=== PATIENT | male | born 1940 | race Caucasian/White ===

== ENCOUNTER 2018-01-07 15:38 | Inpatient (IN) ==
--- NOTE | 2018-01-07 15:58 | Emergency Department Note ---
Disposition Clinical Impression: Community acquired pneumonia, Sepsis, Lactic acidosis Disposition: Admitted As Inpatient Condition: Good General Adult HPI - General Chief complaint: ED Shortness of Breath/Dyspnea Stated complaint: "cough,sob" Time Seen by Provider: 01/07/18 15:54 - History of Present Illness Pain Scale: 10 - Related Data Home Medications Medication Instructions Recorded Confirmed Clopidogrel [Plavix] 75 mg PO DAILY 01/07/18 01/07/18 Glimepiride [Amaryl] 4 mg PO DAILY 01/07/18 01/07/18 Losartan Potassium [Cozaar] 50 mg PO DAILY 01/07/18 01/07/18 Metformin HCl [Metformin HCl ER] 1,000 mg PO BID 01/07/18 01/07/18 Metoprolol Succinate [Toprol Xl] 50 mg PO DAILY 01/07/18 01/07/18 Simvastatin [Zocor] 40 mg PO HS 01/07/18 01/07/18 Allergies Allergy/AdvReac Type Severity Reaction Status Date / Time No Known Allergies Allergy Verified 01/07/18 17:32 Past Medical History - Past Medical History Medical history: Reports: diabetes, hyperlipidemia, hypertension, myocardial infarction Surgical history: Reports: vascular surgery Psychiatric history: Reports: no psych history - Social History Smoking Status: Former smoker Smokeless Tobacco Status: No Alcohol use: Reports: none Drug use: Reports: none Course Vital Signs Temperature 101.5 F H 01/07/18 15:48 Pulse Rate 90 01/07/18 15:48 Respiratory Rate 18 01/07/18 15:48 Blood Pressure 158/76 01/07/18 15:48 O2 Sat by Pulse Oximetry 93 01/07/18 15:48 Temperature 97.7 F 01/07/18 19:13 Pulse Rate 73 01/07/18 19:13 Respiratory Rate 16 01/07/18 19:13 Blood Pressure 131/72 01/07/18 19:13 O2 Sat by Pulse Oximetry 96 01/07/18 19:13 Oxygen Delivery Oxygen Delivery Nasal Cannula Medical Decision Making - Lab Data Result diagrams: 01/07/18 16:00 01/07/18 16:00 Lab Results 01/07/18 01/07/18 01/07/18 Range/Units 16:00 16:00 16:25 WBC 7.3 (4.3-11.1) K/mcL RBC 4.17 L (4.19-5.50) M/mcL Hgb 13.5 (12.9-16.9) g/dL Hct 38.5 (37.5-50.1) % MCV 92.3 (83.0-100.0) fL MCH 32.4 (28.0-33.3) pg MCHC 35.1 (31.6-35.5) g/dL RDW 13.2 (11.5-14.5) % Plt Count 192 (140-400) K/mcL MPV 9.9 (9.4-12.4) fL Immature Gran % 1.1 (0-4) % Seg Neutrophils % 75.0 % Lymphocytes % 12.3 % Monocytes % 9.7 % Eosinophils % 1.4 % Basophils % 0.5 % Neutrophils # 5.5 (1.6-8.9) K/mcL Lymphocytes # 0.9 (0.6-4.6) K/mcL Monocytes # 0.7 (0.0-1.3) K/mcL Eosinophils # 0.1 (0.0-0.6) K/mcL Basophils # 0.0 (0.0-0.2) K/mcL Sodium 138 (136-145) mEq/L Potassium 4.0 (3.5-5.1) mEq/L Chloride 104 (98-107) mEq/L Carbon Dioxide 26 (23-29) mEq/L BUN 15 (8-23) mg/dL Creatinine 1.11 (0.70-1.30) mg/dL Est GFR ( Amer) > 60 (> 60) Est GFR (Non-Af Amer) > 60 (> 60) BUN/Creatinine Ratio 14 (6-26) Glucose 223 H (70-105) mg/dL Calculated Osmolality 294 (280-300) Lactic Acid 2.5 H (0.5-2.2) mmol/L Calcium 9.0 (8.6-10.3) mg/dL Total Bilirubin 0.7 (0.3-1.0) mg/dL Direct Bilirubin 0.2 (0.0-0.2) mg/dL Indirect Bilirubin 0.5 (0.0-1.2) mg/dL AST 27 (13-39) Units/L ALT 28 (7-52) Units/L Alkaline Phosphatase 59 (34-104) Units/L Troponin I < 0.03 (< 0.04) ng/mL Serum Total Protein 6.9 (6.4-8.9) g/dL Albumin 4.5 (3.5-5.7) g/dL Globulin 2.4 (2.4-3.5) g/dL Albumin/Globulin Ratio 1.9 (1.1-2.2) Urine Color (Yellow) Urine Clarity (Clear) Urine pH (5.0-8.0) pH Units Ur Specific [place] (1.010-1.025) Urine Protein (Neg-Trace) mg/dL Urine Glucose (UA) (Normal) mg/dL Urine Ketones (Negative) mg/dL Urine Blood (Negative) Urine Nitrite (Negative) Urine Bilirubin (Negative) Urine Urobilinogen (Normal) mg/dL Ur Leukocyte Esterase (Negative) Urine Microscopic RBC (0-3) per hpf Urine Microscopic WBC (0-3) per hpf Ur Squamous Epith Cells (None-Few) per lpf Urine Bacteria (None-Few) per hpf Hyaline Casts (None-Few) per lpf Ur Culture Indicated? (NO) 01/07/18 Range/Units 16:55 WBC (4.3-11.1) K/mcL RBC (4.19-5.50) M/mcL Hgb (12.9-16.9) g/dL Hct (37.5-50.1) % MCV (83.0-100.0) fL MCH (28.0-33.3) pg MCHC (31.6-35.5) g/dL RDW (11.5-14.5) % Plt Count (140-400) K/mcL MPV (9.4-12.4) fL Immature Gran % (0-4) % Seg Neutrophils % % Lymphocytes % % Monocytes % % Eosinophils % % Basophils % % Neutrophils # (1.6-8.9) K/mcL Lymphocytes # (0.6-4.6) K/mcL Monocytes # (0.0-1.3) K/mcL Eosinophils # (0.0-0.6) K/mcL Basophils # (0.0-0.2) K/mcL Sodium (136-145) mEq/L Potassium (3.5-5.1) mEq/L Chloride (98-107) mEq/L Carbon Dioxide (23-29) mEq/L BUN (8-23) mg/dL Creatinine (0.70-1.30) mg/dL Est GFR ( Amer) (> 60) Est GFR (Non-Af Amer) (> 60) BUN/Creatinine Ratio (6-26) Glucose (70-105) mg/dL Calculated Osmolality (280-300) Lactic Acid (0.5-2.2) mmol/L Calcium (8.6-10.3) mg/dL Total Bilirubin (0.3-1.0) mg/dL Direct Bilirubin (0.0-0.2) mg/dL Indirect Bilirubin (0.0-1.2) mg/dL AST (13-39) Units/L ALT (7-52) Units/L Alkaline Phosphatase (34-104) Units/L Troponin I (< 0.04) ng/mL Serum Total Protein (6.4-8.9) g/dL Albumin (3.5-5.7) g/dL Globulin (2.4-3.5) g/dL Albumin/Globulin Ratio (1.1-2.2) Urine Color Yellow (Yellow) Urine Clarity Clear (Clear) Urine pH 5.5 (5.0-8.0) pH Units Ur Specific [place] 1.025 (1.010-1.025) Urine Protein 30 H (Neg-Trace) mg/dL Urine Glucose (UA) 100 H (Normal) mg/dL Urine Ketones Negative (Negative) mg/dL Urine Blood Negative (Negative) Urine Nitrite Negative (Negative) Urine Bilirubin Negative (Negative) Urine Urobilinogen Normal (Normal) mg/dL Ur Leukocyte Esterase Negative (Negative) Urine Microscopic RBC 0-3 (0-3) per hpf Urine Microscopic WBC 0-3 (0-3) per hpf Ur Squamous Epith Cells Moderate H (None-Few) per lpf Urine Bacteria None Seen (None-Few) per hpf Hyaline Casts None Seen (None-Few) per lpf Ur Culture Indicated? NO (NO) Attestation Statement - Attestation Attestation: I examined this patient and my medical decision-making was reviewed with the Resident Physician. I agree with the documented findings, disposition and treatment plan as described except to the extent set forth below. [id number] time provided Patient recently returned from the [facility] and [place]. He complains of a productive cough and dyspnea. He is also febrile. Patient has no asymmetric leg swelling. Appears mildly dyspneic on exam. He is not conversationally dyspneic. Patient evaluated in conjunction with the resident physician Dr. Booker
--- NOTE | 2018-01-07 16:20 | Emergency Department Note ---
Disposition Clinical Impression: Lactic acidosis Community acquired pneumonia Qualifiers: Laterality: left Lung location: unspecified part of lung Qualified Code(s): J18.9 - Pneumonia, unspecified organism Sepsis Qualifiers: Sepsis type: sepsis due to unspecified organism Qualified Code(s): A41.9 - Sepsis, unspecified organism Disposition: Admitted As Inpatient Condition: Good Referrals: Sue Bravo [employer] [Primary Care Provider] - Forms: ED Satisfaction Letter Time of Disposition: 17:48 SOB HPI - General Chief Complaint: ED Shortness of Breath/Dyspnea Stated Complaint: "cough,sob" Time Seen by Provider: 01/07/18 15:54 Source: patient, family () Limitations: no limitations Nursing Notes Reviewed: Yes Vital Signs Reviewed: Yes - History of Present Illness 77-year-old male presents emergency department for shortness of breath and cough. Patient recently came back from a week travel from [facility] returning on Saturday. Since then he has progressively developed a cough with shortness of breath. No fevers at home but fever present here on arrival. States is been progressively worsening especially with exertion. Denies any chest pain. Reports over the past year use had issues with breathing. Denies any abdominal pain, nausea, vomiting or diarrhea. Has noticed some runny nose. Denies any leg swelling. 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 Denies any known lung disease. Was a former smoker. Denies known malignancy. He has an albuterol which she did use yesterday that she helped slightly. Denies history of blood clots. Patient reports a similar history about a year ago. Pt Subjective Complaint: shortness of breath, cough - Related Data Home Medications Medication Instructions Recorded Confirmed Clopidogrel [Plavix] 75 mg PO DAILY 01/07/18 01/07/18 Glimepiride [Amaryl] 4 mg PO DAILY 01/07/18 01/07/18 Losartan Potassium [Cozaar] 50 mg PO DAILY 01/07/18 01/07/18 Metformin HCl [Metformin HCl ER] 1,000 mg PO BID 01/07/18 01/07/18 Metoprolol Succinate [Toprol Xl] 50 mg PO DAILY 01/07/18 01/07/18 Simvastatin [Zocor] 40 mg PO HS 01/07/18 01/07/18 Allergies Allergy/AdvReac Type Severity Reaction Status Date / Time No Known Allergies Allergy Verified 01/07/18 17:32 All systems ED: reviewed and negative except as stated. Review of Systems: As Per HPI Constitutional: Reports: fever. Denies: chills, weakness ENT ED: Reports: congestion Cardiovascular: Denies: chest pain Respiratory: Reports: cough, dyspnea Gastrointestinal: Denies: abdominal pain, nausea, vomiting, diarrhea Musculoskeletal: Denies: back pain, neck pain, arthralgia, myalgia Neurological: Denies: headache Past Medical History - Past Medical History Attestation: Yes The following information was validated with the patient. Source: patient Medical history: Reports: diabetes, hyperlipidemia, hypertension, myocardial infarction Surgical history: Reports: vascular surgery Psychiatric history: Reports: no psych history - Social History Smoking Status: Former smoker Smokeless Tobacco Status: No Alcohol use: Reports: none Drug use: Reports: none Physical Exam - General Limitations: no limitations General appearance: alert, in no apparent distress - Head Head exam: atraumatic, normocephalic, normal inspection - Eye Eye exam: Present: normal appearance, PERRL, EOMI - ENT ENT exam: normal exam, normal oropharynx, mucous membranes moist - Neck Neck exam: Present: normal inspection, full ROM, trachea midline - Chest Chest inspection: Present: normal inspection, symmetric chest wall rise, other ( midline sternal scar consistent with CABG) - Respiratory Respiratory exam: Present: normal lung sounds bilaterally. Absent: respiratory distress - Expanded Respiratory Exam Location: rales: Lower - Cardiovascular Cardiovascular exam: Present: regular rate, normal rhythm, normal heart sounds - Abdominal Exam Abdominal exam: Present: soft, Non-Tender, normal bowel sounds. Absent: tenderness, distention, guarding, rebound, rigidity - Extremities Exam Extremities exam: Present: normal inspection, full ROM, normal capillary refill. Absent: tenderness, pedal edema, calf tenderness - Neurological Exam Neurological exam: Present: alert, oriented X3, CN II-XII intact - Expanded Neurological Exam Patient oriented to: Present: person, place, time Cranial nerves: EOM function (II, III, IV, ): Normal, facial sensation (V): Normal, facial palsy (VII): Normal, gag reflex (IX): Normal, spinal accessory function (XI): Normal, tongue deviation (XII): Normal Motor strength - LUE: 5/5 Motor strength - RUE: 5/5 Motor strength - LLE: 5/5 Motor strength - RLE: 5/5 - Psychiatric Psychiatric exam: Present: normal affect, normal mood - Skin Skin exam: Present: warm, dry, intact, normal color. Absent: rash, cyanosis, diaphoresis Course Course Narrative: Patient presents with cough fever or shortness of breath. Progressively worse over the past 48 hours. He was slightly hypoxic here requiring nasal cannula. Given his recent symptoms will evaluate for pneumonia. Consideration for pulmonary embolism less likely given the cough and fever. He has a Wells score of 0. Sepsis workup initiated including chest x-ray basic labs in blood cultures. Final disposition pending workup. - Reevaluation(s) Reevaluation #1: Review of his labs no leukocytosis. His glucose is slightly elevated 200. History of diabetes. His lactate is elevated 2.5. He is not hypotensive requiring aggressive fluid resuscitation but will give him some normal saline given the elevated lactate. Will repeat that. Chest x-ray shows findings concerning for pneumonia and the left low. Given his fever cough and dyspnea and currently requiring some oxygen supplementation patient will be admitted to the hospital for further care management. He is quite active in will treat him azithromycin and ceftriaxone. He is in agreement with this plan for admission. Impression is community acquired pneumonia, elevated lactate, sepsis. Time: 17:21 - Consultations Consultation #1: Spoke with on-call hospitalist katharine Yo to admit for community acquired pneumonia, sepsis, lactic acidosis. No further orders at this time Time: 17:48 Vital Signs Temperature 101.5 F H 01/07/18 15:48 Pulse Rate 90 01/07/18 15:48 Respiratory Rate 18 01/07/18 15:48 Blood Pressure 158/76 01/07/18 15:48 O2 Sat by Pulse Oximetry 93 01/07/18 15:48 Temperature 101.5 F H 01/07/18 15:57 Pulse Rate 90 01/07/18 15:57 Respiratory Rate 18 01/07/18 15:57 Blood Pressure 158/76 01/07/18 15:57 O2 Sat by Pulse Oximetry 93 01/07/18 15:57 Oxygen Delivery Oxygen Delivery Room Air Shortness of Breath/Dyspnea - MDM Narrative Medical decision making narrative: Patient was discussed with my attending physician who agrees with ED management and final disposition. They independently evaluated the patient. Please refer to their attestation to this encounter for additional information. This note was generated by [employer] voice recognition software and as a result grammatical or spelling errors may occur using this program. - Medical Records Medical records reviewed: Yes I reviewed the patient's medical records. - Lab Data Lab results reviewed: Yes I reviewed the patient's lab results. Result diagrams: 01/07/18 16:00 01/07/18 16:00 Lab Results 01/07/18 01/07/18 01/07/18 Range/Units 16:00 16:00 16:25 WBC 7.3 (4.3-11.1) K/mcL RBC 4.17 L (4.19-5.50) M/mcL Hgb 13.5 (12.9-16.9) g/dL Hct 38.5 (37.5-50.1) % MCV 92.3 (83.0-100.0) fL MCH 32.4 (28.0-33.3) pg MCHC 35.1 (31.6-35.5) g/dL RDW 13.2 (11.5-14.5) % Plt Count 192 (140-400) K/mcL MPV 9.9 (9.4-12.4) fL Immature Gran % 1.1 (0-4) % Seg Neutrophils % 75.0 % Lymphocytes % 12.3 % Monocytes % 9.7 % Eosinophils % 1.4 % Basophils % 0.5 % Neutrophils # 5.5 (1.6-8.9) K/mcL Lymphocytes # 0.9 (0.6-4.6) K/mcL Monocytes # 0.7 (0.0-1.3) K/mcL Eosinophils # 0.1 (0.0-0.6) K/mcL Basophils # 0.0 (0.0-0.2) K/mcL Sodium 138 (136-145) mEq/L Potassium 4.0 (3.5-5.1) mEq/L Chloride 104 (98-107) mEq/L Carbon Dioxide 26 (23-29) mEq/L BUN 15 (8-23) mg/dL Creatinine 1.11 (0.70-1.30) mg/dL Est GFR ( Amer) > 60 (> 60) Est GFR (Non-Af Amer) > 60 (> 60) BUN/Creatinine Ratio 14 (6-26) Glucose 223 H (70-105) mg/dL Calculated Osmolality 294 (280-300) Lactic Acid 2.5 H (0.5-2.2) mmol/L Calcium 9.0 (8.6-10.3) mg/dL Total Bilirubin 0.7 (0.3-1.0) mg/dL Direct Bilirubin 0.2 (0.0-0.2) mg/dL Indirect Bilirubin 0.5 (0.0-1.2) mg/dL AST 27 (13-39) Units/L ALT 28 (7-52) Units/L Alkaline Phosphatase 59 (34-104) Units/L Troponin I < 0.03 (< 0.04) ng/mL Serum Total Protein 6.9 (6.4-8.9) g/dL Albumin 4.5 (3.5-5.7) g/dL Globulin 2.4 (2.4-3.5) g/dL Albumin/Globulin Ratio 1.9 (1.1-2.2) Urine Color (Yellow) Urine Clarity (Clear) Urine pH (5.0-8.0) pH Units Ur Specific [place] (1.010-1.025) Urine Protein (Neg-Trace) mg/dL Urine Glucose (UA) (Normal) mg/dL Urine Ketones (Negative) mg/dL Urine Blood (Negative) Urine Nitrite (Negative) Urine Bilirubin (Negative) Urine Urobilinogen (Normal) mg/dL Ur Leukocyte Esterase (Negative) Urine Microscopic RBC (0-3) per hpf Urine Microscopic WBC (0-3) per hpf Ur Squamous Epith Cells (None-Few) per lpf Urine Bacteria (None-Few) per hpf Hyaline Casts (None-Few) per lpf Ur Culture Indicated? (NO) 01/07/18 Range/Units 16:55 WBC (4.3-11.1) K/mcL RBC (4.19-5.50) M/mcL Hgb (12.9-16.9) g/dL Hct (37.5-50.1) % MCV (83.0-100.0) fL MCH (28.0-33.3) pg MCHC (31.6-35.5) g/dL RDW (11.5-14.5) % Plt Count (140-400) K/mcL MPV (9.4-12.4) fL Immature Gran % (0-4) % Seg Neutrophils % % Lymphocytes % % Monocytes % % Eosinophils % % Basophils % % Neutrophils # (1.6-8.9) K/mcL Lymphocytes # (0.6-4.6) K/mcL Monocytes # (0.0-1.3) K/mcL Eosinophils # (0.0-0.6) K/mcL Basophils # (0.0-0.2) K/mcL Sodium (136-145) mEq/L Potassium (3.5-5.1) mEq/L Chloride (98-107) mEq/L Carbon Dioxide (23-29) mEq/L BUN (8-23) mg/dL Creatinine (0.70-1.30) mg/dL Est GFR ( Amer) (> 60) Est GFR (Non-Af Amer) (> 60) BUN/Creatinine Ratio (6-26) Glucose (70-105) mg/dL Calculated Osmolality (280-300) Lactic Acid (0.5-2.2) mmol/L Calcium (8.6-10.3) mg/dL Total Bilirubin (0.3-1.0) mg/dL Direct Bilirubin (0.0-0.2) mg/dL Indirect Bilirubin (0.0-1.2) mg/dL AST (13-39) Units/L ALT (7-52) Units/L Alkaline Phosphatase (34-104) Units/L Troponin I (< 0.04) ng/mL Serum Total Protein (6.4-8.9) g/dL Albumin (3.5-5.7) g/dL Globulin (2.4-3.5) g/dL Albumin/Globulin Ratio (1.1-2.2) Urine Color Yellow (Yellow) Urine Clarity Clear (Clear) Urine pH 5.5 (5.0-8.0) pH Units Ur Specific [place] 1.025 (1.010-1.025) Urine Protein 30 H (Neg-Trace) mg/dL Urine Glucose (UA) 100 H (Normal) mg/dL Urine Ketones Negative (Negative) mg/dL Urine Blood Negative (Negative) Urine Nitrite Negative (Negative) Urine Bilirubin Negative (Negative) Urine Urobilinogen Normal (Normal) mg/dL Ur Leukocyte Esterase Negative (Negative) Urine Microscopic RBC 0-3 (0-3) per hpf Urine Microscopic WBC 0-3 (0-3) per hpf Ur Squamous Epith Cells Moderate H (None-Few) per lpf Urine Bacteria None Seen (None-Few) per hpf Hyaline Casts None Seen (None-Few) per lpf Ur Culture Indicated? NO (NO) - Radiology Data Radiology results reviewed: Yes I reviewed the patient's radiology results. Chest X-Ray 01/07/18 16:02 IMPRESSION: Mild left basilar airspace opacities compatible with atelectasis versus pneumonia. D/ / Geovanny Webb MD / Geovanny Webb MD Interpreting Provider: Geovanny Webb MD - EKG Data EKG attestation: Yes I reviewed and interpreted this EKG. EKG results narrative: EKG performed 1638 normal sinus rhythm 86 bpm, incomplete right bundle branch block, QRS 106, no ST elevation or depression, Q waves in inferior leads, intervals within normal limits. Compared to prior EKG performed 07/13/2013 shows similar consistent findings of incomplete right bundle branch block with similar old Q waves in the inferior leads. No acute ischemic changes.
[2018-01-07 16:47] LABS: Troponin I < 0.03 ng/mL (< 0.04)
[2018-01-07 16:48] LABS: Alanine Aminotransferase 28 Units/L (7-52); Albumin 4.5 g/dL (3.5-5.7); Albumin/Globulin Ratio 1.9 (1.1-2.2); Alkaline Phosphatase 59 Units/L (34-104); Aspartate Amino Transferase 27 Units/L (13-39); BUN/Creatinine Ratio 14 (6-26); Bilirubin,Direct 0.2 mg/dL (0.0-0.2); Bilirubin,Indirect 0.5 mg/dL (0.0-1.2); Bilirubin,Total 0.7 mg/dL (0.3-1.0); Blood Urea Nitrogen 15 mg/dL (8-23); Carbon Dioxide 26 mEq/L (23-29); Chloride 104 mEq/L (98-107); Globulin 2.4 g/dL (2.4-3.5); Glucose 223 mg/dL (70-105); Osmolality,Calculated 294 (280-300); Sodium 138 mEq/L (136-145); Total Protein 6.9 g/dL (6.4-8.9); eGFR For African Americans > 60 (> 60); eGFR For Non-African Americans > 60 (> 60)
[2018-01-07 17:06] LABS: Basophils % 0.5 %; Eosinophils # 0.1 K/mcL (0.0-0.6); Eosinophils % 1.4 %; Hematocrit 38.5 % (37.5-50.1); Hemoglobin 13.5 g/dL (12.9-16.9); Immature Granulocytes % 1.1 % (0-4); Lymphocytes # 0.9 K/mcL (0.6-4.6); Lymphocytes % 12.3 %; Mean Corpuscular HGB Conc 35.1 g/dL (31.6-35.5); Mean Corpuscular Hemoglobin 32.4 pg (28.0-33.3); Mean Corpuscular Volume 92.3 fL (83.0-100.0); Mean Platelet Volume 9.9 fL (9.4-12.4); Monocytes # 0.7 K/mcL (0.0-1.3); Monocytes % 9.7 %; Neutrophils # 5.5 K/mcL (1.6-8.9); Platelet Count 192 K/mcL (140-400); Red Blood Count 4.17 M/mcL (4.19-5.50); Red Cell Distribution Width 13.2 % (11.5-14.5)
[2018-01-07] MEDS ORDERED: 0.9 % Sodium Chloride 1,000 ML IVC ONE (17:10)
[2018-01-07 17:12] LABS: Bilirubin,Urine Negative (Negative); Blood,Urine Negative (Negative); Clarity,Urine Clear (Clear); Color,Urine Yellow (Yellow); Glucose,Urine (UA) 100 mg/dL (Normal); Ketones,Urine Negative (Negative); Leukocyte Esterase,Urine Negative (Negative); Nitrite,Urine Negative (Negative); PH,Urine 5.5 pH Units (5.0-8.0); Protein,Urine 30 mg/dL (Neg-Trace); Specific Gravity,Urine 1.025 (1.010-1.025); Urobilinogen,Urine Normal (Normal)
[2018-01-07 17:14] LABS: Bacteria,Urine None Seen per hpf (None-Few); Hyaline Casts,Urine None Seen per lpf (None-Few); RBC,Urine 0-3 per hpf (0-3); Squamous Epithelial Cell,Urine Moderate per lpf (None-Few); WBC,Urine 0-3 per hpf (0-3)
[2018-01-07] MEDS ORDERED: cefTRIAXone 1,000 MG in Water for inj. (sterile) 20 ML 10 ML IVP ONE (17:14)
[2018-01-07] MEDS ORDERED: Azithromycin 500 MG in D5% in Water 250 ML IVPB ONE (17:14)
--- NOTE | 2018-01-07 18:39 | Internal Med History&Physical ---
<Brenda Wells Z - Last Filed: 01/08/18 10:22> Date of Encounter: 01/07/18 Time of Encounter: 07:00 Internal Medicine - H&P: HPI Chief complaint: SOB History of present illness: Mr. Pandya is 77-year-old male who just came back from a week travel from [facility] and [place] returning on Saturday and presents to emergency department with shortness of breath associated with cough. labs revealed lactic acidosis of 2.5. Chest x-ray shows findings concerning for pneumonia and the left lower lobe pneumonia Past Med Surg Social Fam HX - Past Medical History Medical history: diabetes, hyperlipidemia, hypertension, myocardial infarction Psychiatric history: no psych history - Past Surgical History Surgical History: vascular surgery - Social History Smoking Status: Former smoker Smokeless Tobacco Status: No Alcohol use: none Drug use: none Internal Medicine - H&P: Meds Clopidogrel [Plavix] 75 mg PO DAILY 01/07/18 [History] Glimepiride [Amaryl] 4 mg PO DAILY 01/07/18 [History] Losartan Potassium [Cozaar] 50 mg PO DAILY 01/07/18 [History] Metformin HCl [Metformin HCl ER] 1,000 mg PO BID 01/07/18 [History] Metoprolol Succinate [Toprol Xl] 50 mg PO DAILY 01/07/18 [History] Simvastatin [Zocor] 40 mg PO HS 01/07/18 [History] 3 Allergy/AdvReac Type Severity Reaction Status Date / Time No Known Allergies Allergy Verified 01/07/18 17:32 All Systems PM: A 10-system review of systems was performed and is negative for pertinent findings except as documented above in the HPI. - Constitutional Constitutional: fatigue, no chills, no fever(s), no night sweats - Cardiovascular Cardiovascular ROS IM: dyspnea, no chest pain, no diaphoresis, no lightheadedness, no palpitations, no syncope - Respiratory Respiratory: cough, dyspnea, no wheezing, no excessive phlegm production - Neurological Neurological ROS: no confusion, no convulsions, no focal weakness, no numbness, no tingling, no tremor(s) - Constitutional Vitals: Temp Pulse Resp BP Pulse Ox 101.5 F H 90 18 158/76 93 01/07/18 15:57 01/07/18 15:57 01/07/18 15:57 01/07/18 15:57 01/07/18 15:57 General appearance: Present: A&O X 3 - Head Head exam: Present: atraumatic, normocephalic - Neck Neck exam general surgery: Present: supple, trachea midline. Absent: lymphadenopathy - Respiratory Respiratory exam: Present: CTAB. Absent: accessory muscle use, rales, rhonchi, wheezes - Cardiovascular Cardiovascular exam: Present: RRR, +S1, +S2. Absent: diastolic murmur, gallop, rubs, systolic murmur - GI/Abdominal GI/Abdominal exam: Present: normal bowel sounds, soft, no peritoneal signs. Absent: distended, tenderness - Extremities Exam Extremities exam: Present: warm, radial pulses palpable and symmetrical. Absent : calf tenderness, cyanotic, pedal edema Internal Med - H&P Results - Labs CBC & Chem 7: 01/08/18 05:03 01/08/18 05:03 - Assessment and plan (1) Community acquired pneumonia Current Visit: Yes Status: Acute Assessment and plan: ASSESSMENT: - SOB due to Pneumonia - Blood Cx - Urine Legionella antigen - Antibiotics - CBCD, CMP in AM - Tylenol 650 mg PO q 4-6 hr PRN pain or fever - Home meds - check the list and restart accordingly - Heparin 5000 U SQ BID Qualifiers: Laterality: left Lung location: unspecified part of lung Qualified Code(s ): J18.9 - Pneumonia, unspecified organism (2) Essential hypertension Current Visit: No Status: Acute Assessment and plan: Blood pressure is reasonably controlled, continue antihypertensive regimen with holding parameters. (3) Mixed hyperlipidemia Current Visit: No Status: Acute Assessment and plan: we will continue home medication, fasting lipid profile in a.m. (4) CAD (coronary artery disease), [place] coronary artery Current Visit: No Status: Chronic Assessment and plan: the patient has dyspnea, but he is not complaining of chest pain, EKG wassignificant abnormalities, we will trend troponin Qualifiers: [place] vs. 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 Assessment and plan: most likely secondary to tissue hypoxia in the setting of sepsis (7) Lactic acidosis Current Visit: Yes Status: Acute (8) Sepsis Current Visit: Yes Status: Acute Assessment and plan: we will start IV hydration with isotonic fluid, obtain blood cultures, sputum cultures and start empiric antibiotics for pneumonia Qualifiers: Sepsis type: sepsis due to unspecified organism Qualified Code(s): A41.9 - Sepsis, unspecified organism (9) DVT (deep venous thrombosis) Current Visit: Yes Status: Acute Assessment and plan: Will start subcutaneous heparin (10) Diabetes Current Visit: Yes Status: Acute Assessment and plan: we will hold metformin for now, continue home meds and start the patient and insulin sliding scale with moderate coverage - Time Spent With Patient Total time spent is greater than 50% in coordination of care (as documented) at patient's floor/unit and/or counseling patient: <Preethi Chauhan - Last Filed: 01/08/18 19:23> Date of Encounter: 01/08/18 Internal Medicine - H&P: HPI History of present illness: Mr. Pandya is a 77 year old male All Systems PM: A 10-system review of systems was performed and is negative for pertinent findings except as documented above in the HPI. - Constitutional Vitals: Temp Pulse Resp BP Pulse Ox 98.3 F 76 17 160/72 96 01/08/18 19:00 01/08/18 19:00 01/08/18 19:00 01/08/18 19:00 01/08/18 19:00 Internal Med - H&P Results - Labs CBC & Chem 7: 01/08/18 05:03 01/08/18 05:03 Labs: Short CBC 01/08/18 Range/Units 05:03 WBC 6.5 (4.3-11.1) K/mcL Hgb 12.1 L (12.9-16.9) g/dL Hct 35.4 L (37.5-50.1) % Plt Count 170 (140-400) K/mcL Neutrophils # 4.1 (1.6-8.9) K/mcL BMP 01/08/18 05:03 Sodium 136 Potassium 3.7 Chloride 105 Carbon Dioxide 24 BUN 11 Creatinine 0.85 Glucose 173 H Calcium 8.4 L Cardiac Enzymes 01/07/18 01/08/18 01/08/18 Range/Units 20:09 00:58 08:06 Troponin I < 0.03 < 0.03 < 0.03 (< 0.04) ng/mL Liver Function 01/08/18 Range/Units 05:03 Total Bilirubin 0.5 (0.3-1.0) mg/dL AST 25 (13-39) Units/L ALT 24 (7-52) Units/L Alkaline Phosphatase 50 (34-104) Units/L Albumin 3.8 (3.5-5.7) g/dL Urine 01/07/18 Range/Units 20:30 Urine Color Yellow (Yellow) Urine Clarity Clear (Clear) Urine pH 5.5 (5.0-8.0) pH Units Ur Specific [place] 1.025 (1.010-1.025) Urine Protein 30 H (Neg-Trace) mg/dL Urine Glucose (UA) Normal (Normal) mg/dL - Assessment and plan (1) Popliteal artery aneurysm Current Visit: Yes Status: Chronic (2) Peripheral vascular disease due to secondary diabetes Current Visit: Yes Status: Chronic (3) CAD (coronary artery disease), [place] coronary artery Current Visit: Yes Status: Chronic Qualifiers: [place] vs. transplanted heart: [place] heart Associated angina: without angina Qualified Code(s): I25.10 - Atherosclerotic heart disease of [place] coronary artery without angina pectoris (4) Mixed hyperlipidemia Current Visit: Yes Status: Acute (5) Essential hypertension Current Visit: Yes Status: Acute (6) Community acquired pneumonia Current Visit: Yes Status: Acute Qualifiers: Laterality: left Lung location: unspecified part of lung Qualified Code(s ): J18.9 - Pneumonia, unspecified organism (7) Sepsis Current Visit: Yes Status: Resolved Qualifiers: Sepsis type: sepsis due to unspecified organism Qualified Code(s): A41.9 - Sepsis, unspecified organism (8) Lactic acidosis Current Visit: Yes Status: Resolved (9) DVT (deep venous thrombosis) Current Visit: Yes Status: Acute (10) Diabetes Current Visit: Yes Status: Acute Qualifiers: Diabetes mellitus type: type 2 Diabetes mellitus terminal 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
[2018-01-07] MEDS ORDERED: Naloxone 0.4 MG/ML INJ IVP PRN (19:51)
[2018-01-07] MEDS ORDERED: Acetaminophen 325 MG TABLET PO PRN (19:51)
[2018-01-07] MEDS ORDERED: Azithromycin 500 MG in D5% in Water 250 ML IVPB SCH (20:00)
[2018-01-07] MEDS: 0.9 % Sodium Chloride 1,000 ML IVC SCH (20:26)
[2018-01-07] MEDS ORDERED: *HR* Metformin 500 MG TABLET PO SCH (21:00)
[2018-01-07 21:30] LABS: Bilirubin,Urine Negative (Negative); Blood,Urine Negative (Negative); Clarity,Urine Clear (Clear); Color,Urine Yellow (Yellow); Glucose,Urine (UA) Normal (Normal); Ketones,Urine Negative (Negative); Leukocyte Esterase,Urine Negative (Negative); Nitrite,Urine Negative (Negative); PH,Urine 5.5 pH Units (5.0-8.0); Protein,Urine 30 mg/dL (Neg-Trace); Specific Gravity,Urine 1.025 (1.010-1.025); Urobilinogen,Urine Normal (Normal)
[2018-01-07 21:32] LABS: Bacteria,Urine None Seen per hpf (None-Few); Hyaline Casts,Urine None Seen per lpf (None-Few); Squamous Epithelial Cell,Urine Moderate per lpf (None-Few); WBC,Urine 0-3 per hpf (0-3)
[2018-01-07] MEDS ORDERED: *HR* Dextrose 50 % in Water (Syg) 50 ML SYRINGE IVP PRN (21:36)
[2018-01-07] MEDS ORDERED: D5% in Water 1,000 ML IVC PRN (21:36)
[2018-01-07] MEDS ORDERED: Dextrose Gel 15 GM/37.5 ML TUBE PO PRN ×2 (21:36)
[2018-01-07] MEDS: Insulin LISPRO 300 UNITS/3 ML VIAL SQ SCH (22:12)
[2018-01-07] MEDS: Menthol 9.1 MG LOZENGE PO PRN (22:12)
[2018-01-07 22:54] LABS: Influenza A PCR Negative (Negative); Influenza B PCR Negative (Negative); Resp. Syncytial Virus PCR Negative (Negative)
[2018-01-08] MEDS: Menthol 9.1 MG LOZENGE PO PRN ×3 (03:49→14:11)
[2018-01-08] MEDS ORDERED: Ipratropium/Albuterol Neb 3 ML IH PRN (04:20)
[2018-01-08] MEDS: 0.9 % Sodium Chloride 1,000 ML IVC SCH (04:48)
[2018-01-08] MEDS: *HR* Heparin 5,000 UNIT/ML VIAL SQ SCH ×2 (06:17→17:12)
[2018-01-08 06:28] LABS: Basophils % 0.5 %; Eosinophils # 0.1 K/mcL (0.0-0.6); Eosinophils % 1.7 %; Hematocrit 35.4 % (37.5-50.1); Hemoglobin 12.1 g/dL (12.9-16.9); Immature Granulocytes % 0.9 % (0-4); Lymphocytes # 1.4 K/mcL (0.6-4.6); Lymphocytes % 20.9 %; Mean Corpuscular HGB Conc 34.2 g/dL (31.6-35.5); Mean Corpuscular Hemoglobin 31.8 pg (28.0-33.3); Mean Corpuscular Volume 92.9 fL (83.0-100.0); Mean Platelet Volume 9.9 fL (9.4-12.4); Monocytes # 0.8 K/mcL (0.0-1.3); Monocytes % 12.7 %; Neutrophils # 4.1 K/mcL (1.6-8.9); Platelet Count 170 K/mcL (140-400); Red Blood Count 3.81 M/mcL (4.19-5.50); Red Cell Distribution Width 13.2 % (11.5-14.5); Segmented Neutrophils % 63.3 %
[2018-01-08 06:32] LABS: INR 1.2; Prothrombin Time 12.7 Seconds (9.4-12.1)
[2018-01-08 06:34] LABS: Activated Partial Thrombo Time 28.2 Seconds (26.0-36.0)
[2018-01-08 06:47] LABS: Alanine Aminotransferase 24 Units/L (7-52); Albumin 3.8 g/dL (3.5-5.7); Albumin/Globulin Ratio 1.8 (1.1-2.2); Alkaline Phosphatase 50 Units/L (34-104); Aspartate Amino Transferase 25 Units/L (13-39); BUN/Creatinine Ratio 13 (6-26); Bilirubin,Total 0.5 mg/dL (0.3-1.0); Blood Urea Nitrogen 11 mg/dL (8-23); Calcium 8.4 mg/dL (8.6-10.3); Carbon Dioxide 24 mEq/L (23-29); Chloride 105 mEq/L (98-107); Chol/HDL Ratio 3.2 (0-4.9); Cholesterol 92 mg/dL (< 200); Globulin 2.1 g/dL (2.4-3.5); Glucose 173 mg/dL (70-105); HDL Cholesterol 29 mg/dL (40-59); LDL Cholesterol,Calculated 37 mg/dL (0-99); Magnesium 1.4 mg/dL (1.6-2.6); Osmolality,Calculated 286 (280-300); Phosphorous 2.9 mg/dL (2.7-4.5); Potassium 3.7 mEq/L (3.5-5.1); Sodium 136 mEq/L (136-145); Total Protein 5.9 g/dL (6.4-8.9); Triglycerides 132 mg/dL (< 150); eGFR For African Americans > 60 (> 60); eGFR For Non-African Americans > 60 (> 60)
[2018-01-08] MEDS: Insulin LISPRO 300 UNITS/3 ML VIAL SQ SCH ×4 (07:47→21:05)
[2018-01-08] MEDS: *HR* Glimepiride 4 MG TABLET PO SCH (07:47)
[2018-01-08] MEDS: Metoprolol XL (24 HR) Succ 50 MG TAB.ER.24H PO SCH (07:47)
[2018-01-08] MEDS: Magnesium Oxide 400 MG TABLET PO SCH (09:45)
[2018-01-08] MEDS ORDERED: Azithromycin 500 MG in D5% in Water 250 ML IVPB SCH (18:00)
--- NOTE | 2018-01-08 18:38 | Internal Med Progress Note ---
Date of Encounter: 01/08/18 Time of Encounter: 11:55 - Assessment and plan (1) Popliteal artery aneurysm Current Visit: Yes Status: Chronic Assessment and plan: Per patient history. (2) Peripheral vascular disease due to secondary diabetes Current Visit: Yes Status: Chronic Assessment and plan: Chronic. Follow with primary care. (3) CAD (coronary artery disease), [place] coronary artery Current Visit: Yes Status: Chronic Assessment and plan: Chronic. Patient denies chest pain. EKG negative for ST changes. Troponins negative. Continue Plavix, beta xavi, statin. Qualifiers: [place] vs. transplanted heart: [place] heart Associated angina: without angina Qualified Code(s): I25.10 - Atherosclerotic heart disease of [place] coronary artery without angina pectoris (4) Mixed hyperlipidemia Current Visit: Yes Status: Acute Assessment and plan: Chronic. Continue statin. (5) Essential hypertension Current Visit: Yes Status: Acute Assessment and plan: Chronic. Continue home medications. Blood pressure is well controlled in setting hospital. (6) Community acquired pneumonia Current Visit: Yes Status: Acute Assessment and plan: Patient reports returning back from a weeklong cruise within the last 5 days. He presented to the emergency department shortness of breath with cough, mild confusion per family. Patient reports shortness of breath. Chest x-ray showed mild left basilar airspace opacities compatible with atelectasis versus pneumonia. Patient is requiring supplemental oxygen, does not wear oxygen at home. Lactic was elevated upon admission, return to normal. Legionella is negative. At this time, patient is afebrile, there is no tachycardia or tachypnea, patient is normotensive. There were no signs of sirs or sepsis. Blood cultures are pending, sputum culture was not collected and pending. Continue IV Zithromax Duo nebs as needed Oxygen as needed to maintain sats greater than 92% Continue monitor labs and vitals. Qualifiers: Laterality: left Lung location: unspecified part of lung Qualified Code(s ): J18.9 - Pneumonia, unspecified organism (7) Sepsis Current Visit: Yes Status: Resolved Assessment and plan: Resolved. Continue to monitor. Qualifiers: Sepsis type: sepsis due to unspecified organism Qualified Code(s): A41.9 - Sepsis, unspecified organism (8) Lactic acidosis Current Visit: Yes Status: Resolved Assessment and plan: Lactic has returned to 1.2, within normal limits. Continue to monitor. (9) Diabetes Current Visit: Yes Status: Acute Assessment and plan: Continue SSI, accuchecks achs, and diabetic diet. Qualifiers: Diabetes mellitus type: type 2 Diabetes mellitus penitentiary insulin use: unspecified penitentiary insulin use status Diabetes mellitus complication status : without complication Qualified Code(s): E11.9 - Type 2 diabetes mellitus without complications (10) DVT prophylaxis Current Visit: Yes Status: Acute Assessment and plan: Heparin subcutaneous twice a day. - Time Spent With Patient Total time spent is greater than 50% in coordination of care (as documented) at patient's floor/unit and/or counseling patient: less than 15 minutes - Subjective Interval history: Patient was seen and assessed at bedside at 10:55 AM. Daughter at bedside. All questions answered. Patient reports he has had a sore throat since yesterday, denies any history of strep throat in the past. States that he is feeling somewhat better than he was yesterday, not ready to go home. He denies any headache, vision changes, neck pain, fever or chills. He denies chest pain or shortness of breath. He does report cough, and is nonproductive. He denies any abdominal pain, nausea, vomiting, diarrhea. - Constitutional Vitals: Temp Pulse Resp BP Pulse Ox 98.8 F 74 18 161/78 93 01/08/18 15:40 01/08/18 15:40 01/08/18 15:40 01/08/18 15:40 01/08/18 15:40 General appearance: Present: cooperative, A&O X 3, pleasant, no acute distress, answers questions appropriately - Head Head exam: Present: atraumatic, normal inspection, normocephalic - Eye Eye exam: Present: EOMI, normal appearance, conjuntiva pink, sclera anicteric. Absent: nystagmus - Neck Neck exam general surgery: Present: normal inspection, supple, trachea midline. Absent: lymphadenopathy, tenderness - Respiratory Respiratory exam: Present: CTAB, wheezes. Absent: accessory muscle use, rales, rhonchi - Cardiovascular Cardiovascular exam: Present: RRR, +S1, +S2. Absent: diastolic murmur, gallop, rubs, systolic murmur - GI/Abdominal GI/Abdominal exam: Present: normal bowel sounds, soft, no peritoneal signs. Absent: distended, hepatomegaly, tenderness - Extremities Exam Extremities exam: Present: warm, radial pulses palpable and symmetrical. Absent : calf tenderness, cyanotic, pedal edema - Neurological Exam Neurological exam: Present: alert, oriented X3, no focal deficits. Absent: facial droop, speech deficit - Skin Skin exam: Present: dry, intact, normal color, warm. Absent: rash Internal Medicine: Result - Labs CBC & Chem 7: 01/08/18 05:03 01/08/18 05:03 Labs: Short CBC 01/08/18 Range/Units 05:03 WBC 6.5 (4.3-11.1) K/mcL Hgb 12.1 L (12.9-16.9) g/dL Hct 35.4 L (37.5-50.1) % Plt Count 170 (140-400) K/mcL Neutrophils # 4.1 (1.6-8.9) K/mcL BMP 01/08/18 05:03 Sodium 136 Potassium 3.7 Chloride 105 Carbon Dioxide 24 BUN 11 Creatinine 0.85 Glucose 173 H Calcium 8.4 L Cardiac Enzymes 01/07/18 01/08/18 01/08/18 Range/Units 20:09 00:58 08:06 Troponin I < 0.03 < 0.03 < 0.03 (< 0.04) ng/mL Liver Function 01/08/18 Range/Units 05:03 Total Bilirubin 0.5 (0.3-1.0) mg/dL AST 25 (13-39) Units/L ALT 24 (7-52) Units/L Alkaline Phosphatase 50 (34-104) Units/L Albumin 3.8 (3.5-5.7) g/dL Urine 01/07/18 Range/Units 20:30 Urine Color Yellow (Yellow) Urine Clarity Clear (Clear) Urine pH 5.5 (5.0-8.0) pH Units Ur Specific [place] 1.025 (1.010-1.025) Urine Protein 30 H (Neg-Trace) mg/dL Urine Glucose (UA) Normal (Normal) mg/dL - ABG Interpretation ABG results: PT/INR, D-dimer PT 12.7 Seconds (9.4-12.1) H 01/08/18 05:03 Consult Discharge Plan - Plan Referrals: Sue Bravo, ANURAG [Primary Care Provider] -
--- NOTE | 2018-01-08 20:27 | Electrocardiograph Report ---
[address] [address] Test Date: 2018-01-07 Pat Name: Dimitris Pandya Department: 102 Room: 3B44 Gender: M Manager Care: : 1940 Requested By: Daryl Booker Order Number: [id number] Reading MD: Derrell Zhou Measurements Intervals [place] Rate: 86 P: 58 [place]: 161 QRS: -19 QRSD: 106 T: 70 QT: 357 QTc: 400 Interpretive Statements SINUS RHYTHM LEFT ATRIAL ENLARGEMENT INCOMPLETE RIGHT BUNDLE BRANCH BLOCK Poor R wave progression Electronically Signed On 01-08-2018 20:26:08 EDT by Derrell Zhou
[2018-01-09] MEDS: *HR* Heparin 5,000 UNIT/ML VIAL SQ SCH (05:49)
[2018-01-09 07:19] LABS: Basophils % 0.5 %; Eosinophils # 0.3 K/mcL (0.0-0.6); Hematocrit 38.1 % (37.5-50.1); Immature Granulocytes % 0.6 % (0-4); Lymphocytes # 1.4 K/mcL (0.6-4.6); Lymphocytes % 20.6 %; Mean Corpuscular HGB Conc 34.1 g/dL (31.6-35.5); Mean Corpuscular Hemoglobin 31.2 pg (28.0-33.3); Mean Corpuscular Volume 91.4 fL (83.0-100.0); Mean Platelet Volume 9.7 fL (9.4-12.4); Monocytes # 0.7 K/mcL (0.0-1.3); Monocytes % 10.7 %; Neutrophils # 4.1 K/mcL (1.6-8.9); Platelet Count 184 K/mcL (140-400); Red Blood Count 4.17 M/mcL (4.19-5.50); Segmented Neutrophils % 62.6 %
[2018-01-09 07:50] LABS: BUN/Creatinine Ratio 15 (6-26); Blood Urea Nitrogen 13 mg/dL (8-23); Calcium 8.9 mg/dL (8.6-10.3); Carbon Dioxide 25 mEq/L (23-29); Glucose 187 mg/dL (70-105); eGFR For African Americans > 60 (> 60); eGFR For Non-African Americans > 60 (> 60)
[2018-01-09] MEDS: *HR* Glimepiride 4 MG TABLET PO SCH (08:01)
[2018-01-09] MEDS: Magnesium Oxide 400 MG TABLET PO SCH (08:01)
[2018-01-09] MEDS: Metoprolol XL (24 HR) Succ 50 MG TAB.ER.24H PO SCH (08:02)
[2018-01-09] MEDS: Insulin LISPRO 300 UNITS/3 ML VIAL SQ SCH ×2 (08:03→12:21)
[2018-01-09 09:08] LABS: Chloride 104 mEq/L (98-107); Osmolality,Calculated 289 (280-300); Sodium 137 mEq/L (136-145)
--- NOTE | 2018-01-09 14:48 | Discharge Summary ---
- NOTES TO OUTPATIENT PROVIDER Notes to Outpatient Provider: Pt was admitted and treated for CAP. Pt improved significantly and was discharged with Zithromax and Guaifenesin. Date of Encounter: 01/09/18 Time of Encounter: 11:40 - Discharge Diagnosis (1) Popliteal artery aneurysm Priority: Secondary Status: Chronic Assessment and Plan: Per subjective history. (2) Peripheral vascular disease due to secondary diabetes Priority: Secondary Status: Chronic Assessment and Plan: Chronic. (3) CAD (coronary artery disease), [place] coronary artery Priority: Secondary Status: Chronic Assessment and Plan: Chronic. No chest pain. Continue Plavix, beta xavi, statin. Qualifiers: [place] vs. transplanted heart: [place] heart Associated angina: without angina Qualified Code(s): I25.10 - Atherosclerotic heart disease of [place] coronary artery without angina pectoris (4) Mixed hyperlipidemia Priority: Secondary Status: Chronic Assessment and Plan: Chronic. Continue home medication. (5) Essential hypertension Priority: Secondary Status: Chronic Assessment and Plan: Chronic. Continue home medication. (6) Community acquired pneumonia Priority: Secondary Status: Acute Assessment and Plan: Pt has improved. CURB 65 score 1, low risk of 30 day mortality Chest x-ray showed mild left basilar airspace opacities compatible with atelectasis versus pneumonia. Pt is not requiring supplemental 02. Lactic was elevated upon admission, return to normal. Legionella is negative. Blood cultures are pending, sputum culture was not collected and pending. Continue po Zithromax Guaifenesin po prn Qualifiers: Laterality: left Lung location: unspecified part of lung Qualified Code(s ): J18.9 - Pneumonia, unspecified organism (7) Sepsis Priority: Secondary Status: Resolved Qualifiers: Sepsis type: sepsis due to unspecified organism Qualified Code(s): A41.9 - Sepsis, unspecified organism (8) Lactic acidosis Priority: Secondary Status: Resolved Assessment and Plan: Resolved. (9) Diabetes Priority: Secondary Status: Acute Assessment and Plan: Continue home medications. 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 Pandya is a 77 year old male with past medical history of popliteal artery aneurysm, peripheral vascular disease, CAD, hyperlipidemia, essential hypertension, DVT, and diabetes. Patient returned for a one-week cruise approximately one week ago, on day of admission patient was confused, lethargic , had a fever, and complained of shortness of breath with cough. Chest x-ray showed findings concerning for pneumonia left lower lobe. Patient has not been hospitalized recently, community-acquired pneumonia. Legionella antigen was negative, patient had elevated lactic acid on admission, returned normal the next day. Patient's vitals remained stable, labs are within normal limits. Patient's curb 65 score was 1, low risk. Patient was treated with IV Zithromax , DuoNebs. Patient is not requiring supplemental oxygen, he is stable. Physical exam is unremarkable other than faint wheezing and posterior lung ma. He will be sent home with guaifenesin and Zithromax by mouth. Encouraged patient to decrease his activities and stay inside until he is feeling better. I have also encouraged him to follow up with primary care within the next 7 days for recheck. Patient is stable and appropriate for discharge. Discharge discussed with: patient, family - Time Spent with Patient Total time spent providing and/or coordinating discharge services: Less than 30 minutes - Discharge Medications Prescriptions: Azithromycin [Zithromax] 250 mg PO DAILY #4 tablet GuaiFENesin ER [Mucinex] 600 mg PO BID PRN #20 tbbp.12hr PRN Reason: Cough Home Medications: Clopidogrel [Plavix] 75 mg PO DAILY 01/07/18 [History] Glimepiride [Amaryl] 4 mg PO DAILY 01/07/18 [History] Losartan Potassium [Cozaar] 50 mg PO DAILY 01/07/18 [History] Metformin HCl [Metformin HCl ER] 1,000 mg PO BID 01/07/18 [History] Metoprolol Succinate [Toprol Xl] 50 mg PO DAILY 01/07/18 [History] Simvastatin [Zocor] 40 mg PO HS 01/07/18 [History] Azithromycin [Zithromax] 250 mg PO DAILY #4 tablet 01/09/18 [Rx] GuaiFENesin ER [Mucinex] 600 mg PO BID PRN #20 tbbp.12hr 01/09/18 [Rx] Allergies/Adverse Reactions: 3 Allergy/AdvReac Type Severity Reaction Status Date / Time No Known Allergies Allergy Verified 01/07/18 17:32 Date of admission: 01/07/18 19:51 Primary care physician: Sue Bravo CNP Discharging clinician: Preethi Chauhan Anticipated date of discharge: 01/09/18 - Constitutional Vitals: Temp Pulse Resp BP Pulse Ox 98.2 F 70 15 161/74 93 01/09/18 11:01 01/09/18 11:01 01/09/18 11:01 01/09/18 11:01 01/09/18 11:01 General appearance: Present: cooperative, A&O X 3, pleasant, no acute distress, answers questions appropriately - Head Head exam: Present: atraumatic, normal inspection, normocephalic - Eye Eye exam: Present: normal appearance, conjuntiva pink, sclera anicteric - Neck Neck exam general surgery: Present: supple, trachea midline. Absent: lymphadenopathy, tenderness - Respiratory Respiratory exam: Present: CTAB. Absent: accessory muscle use, chest wall tenderness, rales, respiratory distress, rhonchi, wheezes - Cardiovascular Cardiovascular exam: Present: RRR, +S1, +S2. Absent: diastolic murmur, gallop, rubs, systolic murmur - GI/Abdominal GI/Abdominal exam: Present: normal bowel sounds, soft. Absent: distended, hepatomegaly, tenderness - Extremities Exam Extremities exam: Present: normal capillary refill, normal inspection, warm, radial pulses palpable and symmetrical. Absent: calf tenderness, cyanotic, pedal edema, tenderness - Neurological Exam Neurological exam: Present: alert, oriented X3, no focal deficits. Absent: altered, facial droop, speech deficit - Skin Skin exam: Present: dry, intact, normal color, warm. Absent: rash - Patient Status Disposition: Home, Self-Care Condition: Good Functional capacity at discharge: independent ambulation Overall status at discharge: patient is progressing back to baseline - Discharge Instructions Follow Up With: Sue Bravo CNP [Primary Care Provider] - Additional Instructions: Please follow up with your PCP in the next 7 days for a recheck. Return to the ER as needed for any other problems or concerns or if your symptoms return or worsen. Resume your normal medications and your new rx are at your pharmacy. Resume your normal diet and activities as tolerated. Stay inside and supervise your workers, limit activities until you are feeling better. - Diet and Activity Activity: increase activity as tolerated Diet: advance to your usual diet
[2018-01-09 15:08] VITALS: BP 166/74
== END 2018-01-09 16:58 | disposition home or self-care (01) | DRG 871 ==
LOC: 3BNU 15:38 → EMEROO 15:38 → 3BNU 18:55
PROVIDERS: ADMIT Internal Medicine Nephrology; ATTEND Internal Medicine Nephrology

== ENCOUNTER 2019-01-28 11:03 | Observation (INO) ==
[2019-01-28] MEDS ORDERED: Ketorolac 15 MG/ML VIAL IVP ONE (11:58)
[2019-01-28] MEDS ORDERED: Orphenadrine 60 MG/2 ML VIAL IVP ONE (11:58)
[2019-01-28] MEDS ORDERED: *HR* HYDROmorphone (PF) 1 MG/ML SYRINGE IVP ONE (17:54)
[2019-01-28 18:24] LABS: Basophils % 0.3 %; Eosinophils % 0.2 %; Hematocrit 39.5 % (37.5-50.1); Hemoglobin 13.1 g/dL (12.9-16.9); Immature Granulocytes % 1.2 % (0-4); Lymphocytes # 1.7 K/mcL (0.6-4.6); Lymphocytes % 14.2 %; Mean Corpuscular HGB Conc 33.2 g/dL (31.6-35.5); Mean Corpuscular Hemoglobin 31.5 pg (28.0-33.3); Mean Platelet Volume 9.4 fL (9.4-12.4); Monocytes # 0.8 K/mcL (0.0-1.3); Monocytes % 6.7 %; Neutrophils # 9.4 K/mcL (1.6-8.9); Platelet Count 294 K/mcL (140-400); Red Blood Count 4.16 M/mcL (4.19-5.50); Red Cell Distribution Width 12.6 % (11.5-14.5); Segmented Neutrophils % 77.4 %; White Blood Count 12.2 K/mcL (4.3-11.1)
[2019-01-28 18:32] LABS: INR 1.1; Prothrombin Time 12.6 Seconds (9.4-12.1)
[2019-01-28 18:35] LABS: Activated Partial Thrombo Time 28.4 Seconds (26.0-36.0)
[2019-01-28 18:47] LABS: Alanine Aminotransferase 16 Units/L (7-52); Albumin/Globulin Ratio 1.8 (1.1-2.2); Alkaline Phosphatase 50 Units/L (34-104); Aspartate Amino Transferase 30 Units/L (13-39); BUN/Creatinine Ratio 28 (6-26); Bilirubin,Total 0.5 mg/dL (0.3-1.0); Blood Urea Nitrogen 27 mg/dL (8-23); Calcium 9.2 mg/dL (8.6-10.3); Carbon Dioxide 24 mEq/L (23-29); Chloride 104 mEq/L (98-107); Globulin 2.2 g/dL (2.4-3.5); Glucose 168 mg/dL (70-105); Osmolality,Calculated 293 (280-300); Potassium 4.3 mEq/L (3.5-5.1); Sodium 137 mEq/L (136-145); Total Protein 6.2 g/dL (6.4-8.9); eGFR For African Americans > 60 (> 60); eGFR For Non-African Americans > 60 (> 60)
--- NOTE | 2019-01-28 19:21 | Emergency Department Note ---
Disposition Clinical Impression: Lumbar radiculopathy, Intractable back pain, Unable to walk Disposition: Admitted As Inpatient Condition: Good Referrals: Sue Bravo ADVERTISING INTERN [Primary Care Provider] - Forms: ED Satisfaction Letter Time of Disposition: 19:21 Back Pain HPI - General Chief Complaint: ED Back Pain/Injury Stated Complaint: RLE / Back Pain Time Seen by Provider: 01/28/19 11:46 Source: patient Limitations: no limitations - History of Present Illness HPI Narrative: Patient 78-year-old Rajesh presents to emergency department with chief complaint of back pain. Patient states recently had a shoulder injection and then he proceeded to mow the lawn approximately 2 acres. Patient states after mowing the lawn started having pain in his lumbar region and it had pain radiating down his right lower extremity. Patient states he took some Vicodin at home at this did not help his pain and it has progressed to the point that today he can not put hardly any pressure on the right lower extremity. Patient states is not having any bowel or bladder dysfunction states he has no saddle anesthesia den ies foot drop. Pt Subjective Complaint: back pain - Related Data Home Medications Medication Instructions Recorded Confirmed Clopidogrel [Plavix] 75 mg PO DAILY 01/07/18 01/07/18 Glimepiride [Amaryl] 4 mg PO DAILY 01/07/18 01/07/18 Losartan Potassium [Cozaar] 50 mg PO DAILY 01/07/18 01/07/18 Metformin HCl [Metformin ER 1,000 mg PO BID 01/07/18 01/07/18 Gastric] Metoprolol Succinate [Toprol Xl] 50 mg PO DAILY 01/07/18 01/07/18 Simvastatin [Zocor] 40 mg PO HS 01/07/18 01/07/18 Previous Rx's Medication Instructions Recorded Azithromycin [Zithromax] 250 mg PO DAILY #4 tablet 01/09/18 GuaiFENesin ER [Mucinex] 600 mg PO BID PRN #20 tbbp.12hr 01/09/18 Allergies Allergy/AdvReac Type Severity Reaction Status Date / Time No Known Allergies Allergy Verified 01/28/19 11:06 All systems ED: reviewed and negative except as stated. Past Medical History - Past Medical History Attestation: Yes The following information was validated with the patient. Medical history: Reports: diabetes, hyperlipidemia, hypertension, myocardial infarction Surgical history: Reports: vascular surgery Psychiatric history: Reports: no psych history - Social History Smoking Status: Former smoker Smokeless Tobacco Status: No Alcohol use: Reports: none Drug use: Reports: none Physical Exam General: Conversant and pleasant interactive and nontoxic. Head: Normocephalic/atraumatic Eyes:PERRLA, EOMI, no conjunctivitis Nares: Without d/c. Ears: No erythema or d/c noted. Oralpharnyx: P&MMM noted, Neck: Supple, no JVD or FLUTE GRINDER noted. Cardovascular: regular rate and rhythm without murmur, brisk capillary refill, no peripheral edema. Lungs: Clear to ascultation bilaterally, non-labored Abd: Soft nontender, Non Distended, no guarding, no rebound. : Defered Extremities: moves all extremities equally there is tenderness to palpation in the right lower extremity and also in the right SI joint region patient is able ambulate with limited toe-touch weightbearing of the right lower extremity due to pain Neuro: AOx3, no obvious gross neuro deficit Psych: Normal Affect Derm: No rash noted - General Limitations: no limitations General appearance: alert, in no apparent distress Course Course Narrative: Patient has had significant improvement in his pain with IV Dilaudid and Toradol and Norflex. MRI showed there to be a neuroforamina narrowing at the L4 region case was discussed with the on-call orthopedic spine surgeon who recommended the patient be admitted to the hospitalist service for pain control and will be seen by orthospine tomorrow Vital Signs Temperature 97.7 F 01/28/19 11:06 Pulse Rate 59 01/28/19 11:06 Respiratory Rate 20 01/28/19 11:06 Blood Pressure 168/79 01/28/19 11:06 O2 Sat by Pulse Oximetry 97 01/28/19 11:06 Temperature 97.7 F 01/28/19 11:06 Pulse Rate 57 01/28/19 18:13 Respiratory Rate 17 01/28/19 14:40 Blood Pressure 133/57 01/28/19 18:13 O2 Sat by Pulse Oximetry 97 01/28/19 18:13 Oxygen Delivery Oxygen Delivery Room Air Back Pain/Injury - Lab Data Result diagrams: 01/28/19 18:02 01/28/19 18:02 Lab Results 01/28/19 01/28/19 01/28/19 Range/Units 18:02 18:02 18:02 WBC 12.2 H (4.3-11.1) K/mcL RBC 4.16 L (4.19-5.50) M/mcL Hgb 13.1 (12.9-16.9) g/dL Hct 39.5 (37.5-50.1) % MCV 95.0 (83.0-100.0) fL MCH 31.5 (28.0-33.3) pg MCHC 33.2 (31.6-35.5) g/dL RDW 12.6 (11.5-14.5) % Plt Count 294 (140-400) K/mcL MPV 9.4 (9.4-12.4) fL Immature Gran % 1.2 (0-4) % Seg Neutrophils % 77.4 % Lymphocytes % 14.2 % Monocytes % 6.7 % Eosinophils % 0.2 % Basophils % 0.3 % Neutrophils # 9.4 H (1.6-8.9) K/mcL Lymphocytes # 1.7 (0.6-4.6) K/mcL Monocytes # 0.8 (0.0-1.3) K/mcL Eosinophils # 0.0 (0.0-0.6) K/mcL Basophils # 0.0 (0.0-0.2) K/mcL PT 12.6 H (9.4-12.1) Seconds INR 1.1 APTT 28.4 (26.0-36.0) Seconds Sodium 137 (136-145) mEq/L Potassium 4.3 (3.5-5.1) mEq/L Chloride 104 (98-107) mEq/L Carbon Dioxide 24 (23-29) mEq/L BUN 27 H (8-23) mg/dL Creatinine 0.98 (0.70-1.30) mg/dL Est GFR ( Amer) > 60 (> 60) Est GFR (Non-Af Amer) > 60 (> 60) BUN/Creatinine Ratio 28 H (6-26) Glucose 168 H (70-105) mg/dL Calculated Osmolality 293 (280-300) Calcium 9.2 (8.6-10.3) mg/dL Total Bilirubin 0.5 (0.3-1.0) mg/dL AST 30 (13-39) Units/L ALT 16 (7-52) Units/L Alkaline Phosphatase 50 (34-104) Units/L Serum Total Protein 6.2 L (6.4-8.9) g/dL Albumin 4.0 (3.5-5.7) g/dL Globulin 2.2 L (2.4-3.5) g/dL Albumin/Globulin Ratio 1.8 (1.1-2.2)
[2019-01-29] MEDS ORDERED: Naloxone 0.4 MG/ML INJ IVP PRN (02:03)
[2019-01-29] MEDS ORDERED: D5% in Water 1,000 ML IVC PRN (02:08)
[2019-01-29] MEDS ORDERED: Dextrose Gel 15 GM/37.5 ML TUBE PO PRN ×2 (02:08)
[2019-01-29] MEDS ORDERED: *HR* Dextrose 50 % in Water (Syg) 50 ML SYRINGE IVP PRN (02:08)
[2019-01-29] MEDS ORDERED: *HR* OxyCODONE/APAP 5/325 TABLET PO PRN (02:09)
--- NOTE | 2019-01-29 02:23 | Internal Med History&Physical ---
Date of Encounter: 01/29/19 Time of Encounter: 01:00 Internal Medicine - H&P: HPI Chief complaint: Right Lower Extremity/Back Pain Admitted From: Home Plans for Post Hospital Care: Home History of present illness: Mr. Pandya is a 78 year old male with past medical history significant for CAD with CABG and 5 stents, [place], hypertension, hyperlipidemia, diabetes, and lumbar fracture who presents for complaints of back pain radiating throughout entire right lower extremity. Pain started Saturday after mowing. Reports using riding mower and yard was very rough and noticed pain in his lower back which is chronic for him. However, pain then began to radiate down his right lower extremity and has progressively become worse since. Pain is worse with movement and improved with rest. Pain is described as 10/10 when at its worst. Attempted using home hydrocodone without relief. Reports pain becoming so severe that it has caused difficulty with ambulation. Denies experiencing any numbness, tingling, loss of bowel or bladder, or saddle anesthesia. ER obtained a venous duplex of right lower extremity which showed a normal superficial and deep exam. ER also obtained a MRI of the lumbar spine which showed multilevel foraminal narrowing, including severe right L4 neural foraminal stenosis, mild spinal canal stenosis, previous cement augmentation of L2 vertebral body with mild chronic height loss, and no findings concerning for an acute fracture. ER consulted with on-call orthopedic spine surgeon Dr. Gaitan who recommended patient being admitted to the hospital service for pain control and they will s ee him in consult in the morning. Patient was given Dilaudid, Toradol, and Norflex in the ER and he reports significant improvement in his pain. Currently rates his pain at a 2/10 mainly involving the lower part of his right lower extremity. Currently denies any headache, numbness, tingling, chest pain, shortness of breath, abdominal pain, bowel or bladder changes. Follows regularly with PCP every 3 months and client support associate annually. Has also been following regularly recently with [facility] for left hip and right shoulder pain. Checks blood sugars regularly at home and reports they have been averaging 120. Past Med Surg Social Fam HX - Past Medical History Medical history: coronary artery disease, diabetes, hyperlipidemia, hypertension, myocardial infarction Additional medical history: OA. DVT. SLEEP APNEA Psychiatric history: no psych history - Past Surgical History Surgical History: coronary bypass (CABG), orthopedic, other, vascular surgery Additional surgical history: Cement augmentation of L2 vertebral body - Social History Smoking Status: Former smoker Smokeless Tobacco Status: No Alcohol use: none Drug use: none - Family History Mother Living Status: Age at : 75 Hx Family Cardiac Disorders: Yes Hx Family Cancer: Yes (Lung) Father Living Status: Age at : 56 Cause of : Emphysema Hx Family Respiratory Disorders: Yes (Emphysema) Hx Family Cancer: Yes (Pt states " he thinks he had lung ca) Internal Medicine - H&P: Meds Clopidogrel [Plavix] 75 mg PO DAILY 01/07/18 [History] Glimepiride [Amaryl] 4 mg PO DAILY 01/07/18 [History] Losartan Potassium [Cozaar] 50 mg PO DAILY 01/07/18 [History] Metformin HCl [Metformin ER Gastric] 1,000 mg PO BID 01/07/18 [History] Metoprolol Succinate [Toprol Xl] 50 mg PO DAILY 01/07/18 [History] Simvastatin [Zocor] 40 mg PO HS 01/07/18 [History] Aspirin [Lo-Dose Aspirin EC] 81 mg PO DAILY 01/28/19 [History] Allergy/AdvReac Type Severity Reaction Status Date / Time No Known Allergies Allergy Verified 01/28/19 11:06 All Systems PM: A 10-system review of systems was performed and is negative for pertinent findings except as documented above in the HPI. - Constitutional Vitals: Temp Pulse Resp BP Pulse Ox 97.4 F L 57 16 195/76 96 01/28/19 22:21 01/28/19 22:21 01/28/19 22:21 01/28/19 22:21 01/28/19 22:21 Exam: General: Alert and oriented. Skin:Normal color, no rash, no lesions. HEENT:Pupils equal, round and reactive. Cardiovascular:Normal S1 & S2, no rubs, murmurs or gallops. No JVD. Pulse regular. Lungs:Normal breath sounds, no wheezes or crackles. Abdomen:Soft, non-tender, no rigidity. Extremities:No deformity, no edema or tenderness, no joint swelling or clubbing. Mild tenderness on palpation to right lower extremity. PMS intact. Neurological:Normal cognition and motor skills. Pulses:Carotid and radial pulses normal +2. Rest of the physical exam is non contributory. Internal Med - H&P Results - Labs CBC & Chem 7: 01/28/19 18:02 01/28/19 18:02 Labs: Short CBC 01/28/19 Range/Units 18:02 WBC 12.2 H (4.3-11.1) K/mcL Hgb 13.1 (12.9-16.9) g/dL Hct 39.5 (37.5-50.1) % Plt Count 294 (140-400) K/mcL Neutrophils # 9.4 H (1.6-8.9) K/mcL BMP 01/28/19 18:02 Sodium 137 Potassium 4.3 Chloride 104 Carbon Dioxide 24 BUN 27 H Creatinine 0.98 Glucose 168 H Calcium 9.2 Liver Function 01/28/19 Range/Units 18:02 Total Bilirubin 0.5 (0.3-1.0) mg/dL AST 30 (13-39) Units/L ALT 16 (7-52) Units/L Alkaline Phosphatase 50 (34-104) Units/L Albumin 4.0 (3.5-5.7) g/dL - Impressions ITS Impressions Lumbar Spine MRI 01/28/19 11:57 IMPRESSION: Multilevel neural foraminal narrowing, including severe right L4 neural foraminal stenosis. There is mild spinal canal stenosis. Previous cement augmentation of L2 vertebral body with mild chronic height loss. No findings concerning for an acute fracture. D/ / Leland Fountain MD / Lelnad Fountain MD Interpreting Provider: Leland Fountain MD - Assessment and Plan (1) Back pain Current Visit: Yes Status: Acute Assessment and plan: Acute on chronic. Pain now radiating to right lower extremity which is new for patient. MRI of lumbar spine shows multilevel foraminal narrowing, including severe right L4 neural foraminal stenosis, mild spinal canal stenosis, previous cement augmentation of L2 vertebral body with mild chronic height loss. ER consulted on-call orthopedic spine Dr. Gaitan who agrees to see patient in consult. Pain significantly improved after receiving Dilaudid, Toradol, Norflex in ER. Pain control with PRN pain medications. Qualifiers: Back pain location: low back pain Qualified Code(s): M54.5 - Low back pain (2) Right leg pain Current Visit: Yes Status: Acute Assessment and plan: Venous duplex of right lower extremity showed normal superficial and deep exam. Plan as stated above. (3) Increased white blood cell count Current Visit: Yes Status: Acute Assessment and plan: No signs of infection. Repeat labs ordered. Qualifiers: Leukocytosis type: unspecified Qualified Code(s): D72.829 - Elevated white blood cell count, unspecified (4) Elevated blood urea nitrogen Current Visit: Yes Status: Acute Assessment and plan: BUNs slightly elevated at 27. Creatinine and GFR within normal limits. Repeat labs ordered. (5) Diabetes mellitus Current Visit: Yes Status: Chronic Assessment and plan: Hold home medications. Sliding scale insulin ordered. Accu-Chek's ACHS. Qualifiers: Diabetes mellitus type: type 2 Qualified Code(s): E11.9 - Type 2 diabetes mellitus without complications (6) Hypertension Current Visit: Yes Status: Chronic Assessment and plan: Continue home medications once verified. Qualifiers: Hypertension type: unspecified Qualified Code(s): I10 - Essential (primary) hypertension - Time Spent With Patient Total time spent is greater than 50% in coordination of care (as documented) at patient's floor/unit and/or counseling patient:
[2019-01-29 04:08] LABS: Basophils # 0.1 K/mcL (0.0-0.2); Basophils % 0.4 %; Eosinophils # 0.1 K/mcL (0.0-0.6); Eosinophils % 0.5 %; Hematocrit 39.1 % (37.5-50.1); Hemoglobin 13.1 g/dL (12.9-16.9); Immature Granulocytes % 1.5 % (0-4); Lymphocytes % 17.3 %; Mean Corpuscular HGB Conc 33.5 g/dL (31.6-35.5); Mean Corpuscular Hemoglobin 31.6 pg (28.0-33.3); Mean Corpuscular Volume 94.4 fL (83.0-100.0); Mean Platelet Volume 9.7 fL (9.4-12.4); Monocytes # 0.9 K/mcL (0.0-1.3); Monocytes % 7.8 %; Neutrophils # 8.4 K/mcL (1.6-8.9); Platelet Count 286 K/mcL (140-400); Red Blood Count 4.14 M/mcL (4.19-5.50); Red Cell Distribution Width 12.6 % (11.5-14.5); Segmented Neutrophils % 72.5 %; White Blood Count 11.6 K/mcL (4.3-11.1)
[2019-01-29 04:29] LABS: Alanine Aminotransferase 17 Units/L (7-52); Alkaline Phosphatase 47 Units/L (34-104); Aspartate Amino Transferase 31 Units/L (13-39); BUN/Creatinine Ratio 31 (6-26); Bilirubin,Total 0.4 mg/dL (0.3-1.0); Blood Urea Nitrogen 27 mg/dL (8-23); Carbon Dioxide 24 mEq/L (23-29); Chloride 104 mEq/L (98-107); Glucose 146 mg/dL (70-105); Osmolality,Calculated 290 (280-300); Potassium 4.1 mEq/L (3.5-5.1); Sodium 136 mEq/L (136-145); eGFR For African Americans > 60 (> 60); eGFR For Non-African Americans > 60 (> 60)
[2019-01-29] MEDS: Insulin LISPRO 300 UNITS/3 ML VIAL SQ SCH ×3 (08:37→16:39)
[2019-01-29 12:36] LABS: C-Reactive Protein < 5 mg/L (Less than 10); Creatine Kinase 1115 Units/L (30-223)
--- NOTE | 2019-01-29 12:49 | Internal Med Progress Note ---
Hospitalist Progress Note - Encounter Date of Encounter: 01/29/19 Time of Encounter: 10:20 - Subjective Interval History: Mr. 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 Forrester in 05/2016 now he presented to ER with sudden onset of Rt leg calf pain and tenderness with simple touch. He did have some low back pain too, but denied any radiation into Rt leg. He denied any trauma / fall / injury to Rt leg. His KENNEDY of lumbar spine showed - Multilevel neural foraminal narrowing, including severe right L4 neural foraminal stenosis. There is mild spinal canal stenosis. His venous doppler of Rt leg came back as negative for DVT Pt was admitted in the hospital and started him on symptomatic and supportive care with pain medication. Patient stated his pain is tolerable with current pain medication. He still have significant pain with touch in his right calf.. - Exam Vitals: Temp Pulse Resp BP Pulse Ox 98.0 F 61 15 154/78 96 01/29/19 11:04 01/29/19 11:04 01/29/19 11:04 01/29/19 11:04 01/29/19 11:04 Exam: Gen: Alert, awake, Oriented to time,place and person Chest: Diminished breath sounds B/L, No wheezing, No crackles, No rales Heart: S1S2+ RRR No murmurs Abd: Soft, NT, BS +, No organomegaly Ext: Chronic scar from pervious vascular surgery noticed in Rt leg Moderate tenderness noticed in Rt calf area at mid graff level. No warm to touch, no swelling / no erythema noticed.. Soft to touch. No edema, pulses are palpable Neuro : No acute focal neuro deficits noticed Skin: No rash. - Assessment and Plan (1) Right leg pain Current Visit: Yes Status: Acute Assessment and Plan: Venous duplex of right lower extremity showed normal superficial and deep exam. Unclear etiology less likely sciatica pain less likely compartment syndrome cont pain medication ordered ESR, CRP and CK total Also ordered CT of Leg If needed will consult Ortho.. also will talk to his vascular surgery too (2) Back pain Current Visit: Yes Status: Acute Assessment and Plan: Acute on chronic.. MRI of lumbar spine shows multilevel foraminal narrowing, including severe right L4 neural foraminal stenosis, mild spinal canal stenosis, previous cement augmentation of L2 vertebral body with mild chronic height loss. ER consulted on-call orthopedic spine Dr. Gaitan - appreciate recommendations PT / OT eval Cont PRN pain medications (3) Diabetes mellitus Current Visit: Yes Status: Chronic Assessment and Plan: Held home medications. cont ADA diet and ISS (4) Hypertension Current Visit: Yes Status: Chronic - Time Spent with Patient Total time spent is greater than 50% in coordination of care (as documented) at patient's floor/unit and/or counseling patient: Internal Medicine: Result - Labs CBC & Chem 7: 01/29/19 02:29 01/29/19 02:29 Labs: Short CBC 01/28/19 01/29/19 Range/Units 18:02 02:29 WBC 12.2 H 11.6 H (4.3-11.1) K/mcL Hgb 13.1 13.1 (12.9-16.9) g/dL Hct 39.5 39.1 (37.5-50.1) % Plt Count 294 286 (140-400) K/mcL Neutrophils # 9.4 H 8.4 (1.6-8.9) K/mcL BMP 01/28/19 01/29/19 18:02 02:29 Sodium 137 136 Potassium 4.3 4.1 Chloride 104 104 Carbon Dioxide 24 24 BUN 27 H 27 H Creatinine 0.98 0.87 Glucose 168 H 146 H Calcium 9.2 9.0 Liver Function 01/28/19 01/29/19 Range/Units 18:02 02:29 Total Bilirubin 0.5 0.4 (0.3-1.0) mg/dL AST 30 31 (13-39) Units/L ALT 16 17 (7-52) Units/L Alkaline Phosphatase 50 47 (34-104) Units/L Albumin 4.0 4.0 (3.5-5.7) g/dL - ABG Interpretation ABG results: PT/INR, D-dimer PT 12.6 Seconds (9.4-12.1) H 01/28/19 18:02 - Impressions Impressions Lumbar Spine MRI 06/12/19 11:57 IMPRESSION: Multilevel neural foraminal narrowing, including severe right L4 neural foraminal stenosis. There is mild spinal canal stenosis. Previous cement augmentation of L2 vertebral body with mild chronic height loss. No findings concerning for an acute fracture. D/ / Leland Fountain MD / Leland Fountain MD Interpreting Provider: Leland Fountain MD Consult Discharge Plan - Plan Referrals: Sue Bravo, [employer]ENDER [Primary Care Provider] - 02/03/19 1:00 pm (2) Back pain Qualifiers: Back pain location: low back pain Qualified Code(s): M54.5 - Low back pain (3) Diabetes mellitus Qualifiers: Diabetes mellitus type: type 2 Qualified Code(s): E11.9 - Type 2 diabetes mellitus without complications (4) Hypertension Qualifiers: Hypertension type: unspecified Qualified Code(s): I10 - Essential (primary) hypertension
[2019-01-29] MEDS: Aspirin Enteric Coated 81 MG Tablet PO SCH (12:58)
[2019-01-29] MEDS: Metoprolol XL (24 HR) Succ 50 MG TAB.ER.24H PO SCH (12:58)
[2019-01-29] MEDS: 0.9 % Sodium Chloride 1,000 ML IVC SCH (20:54)
[2019-01-30 07:08] LABS: BUN/Creatinine Ratio 26 (6-26); Blood Urea Nitrogen 23 mg/dL (8-23); Calcium 9.1 mg/dL (8.6-10.3); Carbon Dioxide 25 mEq/L (23-29); Chloride 107 mEq/L (98-107); Creatine Kinase 1039 Units/L (30-223); Glucose 163 mg/dL (70-105); Osmolality,Calculated 297 (280-300); Potassium 4.3 mEq/L (3.5-5.1); Sodium 140 mEq/L (136-145); eGFR For African Americans > 60 (> 60); eGFR For Non-African Americans > 60 (> 60)
[2019-01-30] MEDS: Insulin LISPRO 300 UNITS/3 ML VIAL SQ SCH ×2 (08:50→13:04)
[2019-01-30] MEDS: 0.9 % Sodium Chloride 1,000 ML IVC SCH (09:11)
[2019-01-30] MEDS: Metoprolol XL (24 HR) Succ 50 MG TAB.ER.24H PO SCH (10:00)
[2019-01-30] MEDS: Aspirin Enteric Coated 81 MG Tablet PO SCH (10:00)
[2019-01-30 15:19] VITALS: BP 186/65
--- NOTE | 2019-01-30 15:22 | Discharge Summary ---
- NOTES TO OUTPATIENT PROVIDER Notes to Outpatient Provider: f/u with PCP in one week. f/u with Vascular surgery Dr. Forrester in 1-2 weeks. Please stop taking Zocor due to your muscle pains Date of Encounter: 01/30/19 Time of Encounter: 15:17 - Discharge Diagnosis (1) Right leg pain Priority: Primary Status: Acute (2) Myositis Priority: Primary Status: Acute Qualifiers: Myositis type: unspecified type Myositis location: lower leg Laterality: right Qualified Code(s): M60.861 - Other myositis, right lower leg (3) Rhabdomyolysis Priority: Secondary Status: Acute Qualifiers: Rhabdomyolysis type: non-traumatic Qualified Code(s): M62.82 - Rhabdomyolysis (4) Back pain Priority: Secondary Status: Acute Qualifiers: Back pain location: low back pain Qualified Code(s): M54.5 - Low back pain (5) Diabetes mellitus Priority: Secondary Status: Chronic Qualifiers: Diabetes mellitus type: type 2 Qualified Code(s): E11.9 - Type 2 diabetes mellitus without complications (6) Hypertension Priority: Secondary Status: Chronic Qualifiers: Hypertension type: unspecified Qualified Code(s): I10 - Essential (primary) hypertension Hospital course: Mr. 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 Forrester in 05/2016 now he presented to ER with sudden onset of Rt leg calf pain and tenderness with simple touch. He did have some low back pain too, but denied any radiation into Rt leg. He denied any trauma / fall / injury to Rt leg. His KENNEDY of lumbar spine showed - Multilevel neural foraminal narrowing, including severe right L4 neural foraminal stenosis. There is mild spinal canal stenosis. His venous doppler of Rt leg came back as negative for DVT Pt was admitted in the hospital and started him on symptomatic and supportive care with pain medication. His ESR and CRP are WNL. However his CK total significantly elevated @ 1115. He was started on IV hydration. His CT of Rt leg showed no acute osseous abnormality. Prepatellar soft tissue swelling. Small knee joint effusion. Trace Gil's cyst. Arterial bypass graft in place. [place] popliteal artery aneurysm. No signs of infection / no abscess noticed. Seems to be he might have myositis and mild rhabdomyolysis. So I did recommend patient stop taking Zocor and have f/u labs for CPK and BMP in 3 days. Will d/c him home in stable condition today. Also placed him on Lidoderm patch. - Time Spent with Patient Total time spent providing and/or coordinating discharge services: - Discharge Medications Prescriptions: New Lidocaine Patch [Lidoderm 5% patch] 1 each TP DAILY #10 adh..patch Continued Losartan Potassium [Cozaar] 50 mg PO QAM Glimepiride [Amaryl] 4 mg PO QPM Metoprolol Succinate [Toprol Xl] 50 mg PO QAM Clopidogrel [Plavix] 75 mg PO QAM Aspirin [Lo-Dose Aspirin EC] 81 mg PO QAM Metformin HCl [Fortamet] 1,000 mg PO BID HYDROcodone/Acet 5/325 mg [[place] 5-325 mg] 1 tab PO Q4H PRN PRN Reason: Pain Discontinued Simvastatin [Zocor] 40 mg PO QPM Home Medications: Clopidogrel [Plavix] 75 mg PO QAM 01/07/18 [History] Glimepiride [Amaryl] 4 mg PO QPM 01/07/18 [History] Losartan Potassium [Cozaar] 50 mg PO QAM 01/07/18 [History] Metoprolol Succinate [Toprol Xl] 50 mg PO QAM 01/07/18 [History] Aspirin [Lo-Dose Aspirin EC] 81 mg PO QAM 01/28/19 [History] HYDROcodone/Acet 5/325 mg [[place] 5-325 mg] 1 tab PO Q4H PRN 01/30/19 [History] Lidocaine Patch [Lidoderm 5% patch] 1 each TP DAILY #10 adh..patch 01/30/19 [Rx] Metformin HCl [Fortamet] 1,000 mg PO BID 01/30/19 [History] Allergies/Adverse Reactions: Allergy/AdvReac Type Severity Reaction Status Date / Time No Known Allergies Allergy Verified 01/30/19 09:56 Date of admission: 01/28/19 20:33 Primary care physician: Sue Bravo CNP Consults: 01/29/19 02:04 Consult to Orthopedic Surgery [CONS] Routine Consulting Provider: Cyril Gaitan Jr Reason for Consult: ER called Dr Gaitan regarding MRI Lumbar Spine showing multilevel neural foraminal narrowing, including severe right L4 neural foraminal stenosis with mild spinal canal stenosis and previous cement augmentation of L2 vertebral body with mild chronic height loss and no findings of acute fracture. Dr Gaitan requested to admit to hospitalist service and will see in consult. Call Completed: Yes 01/30/19 08:46 Consult to Occupational Therapy [CONS] Stat Comment: Evaluate, develop and implement POC Reason for Consult: BACK/LEG PAIN AND WEAKNESS Does patient have active BEDREST order?: No Is patient medically & hemodynamically stable?: Yes Consult to Physical Therapy [CONS] Stat Comment: Evaluate, develop and implement POC Reason for Consult: BACK/LEG PAIN AND WEAKNESS Does patient have active BEDREST order?: No Is patient medically & hemodynamically stable?: Yes - Constitutional Vitals: Temp Pulse Resp BP Pulse Ox 97.7 F 67 18 159/75 95 01/30/19 11:33 01/30/19 11:33 01/30/19 11:33 01/30/19 11:33 01/30/19 11:33 General appearance: Present: cooperative, A&O X 3, no acute distress, answers questions appropriately Exam: Gen: Alert, awake, Oriented to time,place and person Chest: Diminished breath sounds B/L, No wheezing, No crackles, No rales Heart: S1S2+ RRR No murmurs Abd: Soft, NT, BS +, No organomegaly Ext: Well healed old scar from pervious vascular surgery noticed in Rt leg Improving tenderness noticed in Rt calf area at mid graff level. No warm to touch, no swelling / no erythema noticed..Soft to touch. No edema, pulses are palpable Neuro : No acute focal neuro deficits noticed Skin: No rash. - Patient Status Disposition: Home Health Service Condition: Good Overall status at discharge: patient is back to baseline - Ambulatory Orders Ambulatory Orders: Basic Metabolic Panel [CHEM] Time Frame: 3 Days, Facility: [facility], Location: Lab Creatine Kinase [CHEM] Time Frame: 3 Days, Facility: [facility], Location: Lab - Discharge Instructions Follow Up With: Sue Bravo CNP [Primary Care Provider] - 02/03/19 1:00 pm Cyril Forrester MD [Partnered Physician] - - Diet and Activity Activity: increase activity as tolerated Diet: low salt diet
== END 2019-01-30 16:25 | disposition home health service (06) ==
LOC: 3BNU 11:03 → EMEROOARM 11:03 → SUATTDRO 20:33 → 3BNU 22:35
PROVIDERS: ADMIT Internal Medicine Nephrology; ATTEND Family Medicine

== ENCOUNTER 2022-06-06 19:00 | Observation (INO) ==
[2022-06-06 19:21] VITALS: TEMP 100.3
[2022-06-06] MEDS ORDERED: Iopamidol - 370 500 ML MLS IVP ONE (19:36)
[2022-06-06 19:59] LABS: Hematocrit 33.7 % (37.5-50.1); Hemoglobin 11.2 g/dL (12.9-16.9); Mean Corpuscular HGB Conc 33.2 g/dL (31.6-35.5); Mean Corpuscular Hemoglobin 29.2 pg (28.0-33.3); Mean Platelet Volume 9.5 fL (9.4-12.4); Platelet Count 293 K/mcL (140-400); Red Blood Count 3.83 M/mcL (4.19-5.50); Red Cell Distribution Width 13.4 % (11.5-14.5); White Blood Count 9.5 K/mcL (4.3-11.1)
[2022-06-06 20:04] LABS: Bilirubin,Urine Negative (Negative); Blood,Urine Negative (Negative); Clarity,Urine Clear (Clear); Color,Urine Light-Yellow (Yellow); Glucose,Urine (UA) 70 mg/dL (Normal); Ketones,Urine Negative (Negative); Leukocyte Esterase,Urine Negative (Negative); Mucus,Urine Few per lpf (None-Few); Nitrite,Urine Negative (Negative); PH,Urine 5.5 pH Units (5.0-8.0); Protein,Urine 50 mg/dL (Neg-Trace); RBC,Urine 0-3 per hpf (0-3); Specific Gravity,Urine 1.024 (1.010-1.025); Squamous Epithelial Cell,Urine Few per hpf (None-Few); Urobilinogen,Urine Normal (Normal); WBC,Urine 0-3 per hpf (0-3)
[2022-06-06 20:06] LABS: INR 1.6; Prothrombin Time 17.4 Seconds (9.4-12.1)
[2022-06-06 20:19] LABS: BUN/Creatinine Ratio 15 (6-26); Blood Urea Nitrogen 17 mg/dL (8-23); Calcium 9.3 mg/dL (8.6-10.3); Carbon Dioxide 24 mEq/L (23-29); Chloride 101 mEq/L (98-107); Glucose 159 mg/dL (70-105); Osmolality,Calculated 281 (280-300); Potassium 4.2 mEq/L (3.5-5.1); Sodium 133 mEq/L (136-145); Troponin I < 0.03 ng/mL (< 0.04)
[2022-06-06 22:02] LABS: Adenovirus Not Detected (Not Detect); Coronavirus 229E Not Detected (Not Detect); Coronavirus HKU1 Not Detected (Not Detect); Coronavirus NL63 Not Detected (Not Detect); Coronavirus OC43 Not Detected (Not Detect); SARS-CoV-2 DETECTED (Not Detect)
[2022-06-06 22:03] LABS: Bordetella Pertussis Not Detected (Not Detect); Chlamydophila pneumoniae Not Detected (Not Detect); Human Metapneumovirus Not Detected (Not Detect); Human Rhinovirus/Enterovirus Not Detected (Not Detect); Influenza A Subtype 2009 H1 Not Detected (Not Detect); Influenza B Not Detected (Not Detect); Mycoplasma pneumoniae Not Detected (Not Detect); Parainfluenza Virus 1 Not Detected (Not Detect); Parainfluenza Virus 2 Not Detected (Not Detect); Parainfluenza Virus 3 Not Detected (Not Detect); Parainfluenza Virus 4 Not Detected (Not Detect); Respiratory Syncytial Virus Not Detected (Not Detect)
[2022-06-07] MEDS ORDERED: Ondansetron 4 MG/2 ML VIAL IVP PRN (01:15)
[2022-06-07] MEDS ORDERED: Acetaminophen 325 MG TABLET PO PRN (01:15)
[2022-06-07] MEDS ORDERED: Naloxone 0.4 MG/ML INJ IVP PRN (01:15)
[2022-06-07] MEDS ORDERED: GuaiFENesin Liq 200 MG/10 ML UDC PO PRN (05:50)
[2022-06-07 06:14] LABS: Basophils # 0.1 K/mcL (0.0-0.2); Basophils % 0.6 %; Eosinophils % 0.5 %; Hematocrit 32.4 % (37.5-50.1); Hemoglobin 10.3 g/dL (12.9-16.9); Immature Granulocytes % 0.8 % (0-4); Lymphocytes # 1.4 K/mcL (0.6-4.6); Lymphocytes % 18.2 %; Mean Corpuscular HGB Conc 31.8 g/dL (31.6-35.5); Mean Corpuscular Hemoglobin 28.5 pg (28.0-33.3); Mean Corpuscular Volume 89.8 fL (83.0-100.0); Mean Platelet Volume 9.8 fL (9.4-12.4); Monocytes # 1.2 K/mcL (0.0-1.3); Monocytes % 15.7 %; Platelet Count 273 K/mcL (140-400); Red Blood Count 3.61 M/mcL (4.19-5.50); Red Cell Distribution Width 13.5 % (11.5-14.5); Segmented Neutrophils % 64.2 %; White Blood Count 7.8 K/mcL (4.3-11.1)
[2022-06-07 06:19] LABS: Folate 15.1 ng/mL (3.0-16.0)
[2022-06-07 07:11] LABS: BUN/Creatinine Ratio 14 (6-26); Bilirubin,Total 0.6 mg/dL (0.3-1.0); Blood Urea Nitrogen 18 mg/dL (8-23); Calcium 9.2 mg/dL (8.6-10.3); Carbon Dioxide 22 mEq/L (23-29); Chloride 103 mEq/L (98-107); Glucose 146 mg/dL (70-105); Magnesium 1.6 mg/dL (1.6-2.6); Osmolality,Calculated 287 (280-300); Phosphorous 3.7 mg/dL (2.7-4.5); Potassium 3.9 mEq/L (3.5-5.1); Sodium 136 mEq/L (136-145)
[2022-06-07 07:12] LABS: Alanine Aminotransferase 12 Units/L (7-52); Albumin 3.9 g/dL (3.5-5.7); Albumin/Globulin Ratio 1.6 (1.1-2.2); Alkaline Phosphatase 59 Units/L (34-104); Aspartate Amino Transferase 16 Units/L (13-39); Bilirubin,Direct 0.1 mg/dL (0.0-0.2); Bilirubin,Indirect 0.5 mg/dL (0.0-1.0); Cholesterol 140 mg/dL (< 200); Globulin 2.4 g/dL (2.4-3.5); Total Protein 6.3 g/dL (6.4-8.9); Triglycerides 183 mg/dL (< 150); Troponin I < 0.03 ng/mL (< 0.04)
[2022-06-07 07:20] LABS: Chol/HDL Ratio 4.5 (0-4.9); HDL Cholesterol 31 mg/dL (40-59); LDL Cholesterol,Calculated 72 mg/dL (< 100); Thyroid Stimulating Hormone 3.788 mcIU/mL (0.340-5.600)
[2022-06-07] MEDS ORDERED: Aspirin Enteric Coated 81 MG Tablet PO SCH (09:00)
[2022-06-07 11:25] LABS: Estimated Average Glucose 192 mg/dl; Hemoglobin A1C 8.3 %
[2022-06-07 15:08] VITALS: BP 158/75; PULSE 81; O2SAT 93
== END 2022-06-07 18:34 | disposition home or self-care (01) ==
LOC: 3NENU 19:00 → EMEROOARM 19:00 → SUATTDRO 06-07 00:41 → 3NENU 06-07 01:10
PROVIDERS: ADMIT Student in an Organized Health Care Education/Training Program; ATTEND Family Medicine